=== PATIENT | female | born 1995 | race African-American/Black ===

== ENCOUNTER 2019-04-11 08:12 | Emergency (ER) | payer SELFPAY ==
[~2019-04-11] VITALS: Ht 152.4 cm; Wt 52.6 kg
[2019-04-11 08:28] VITALS: BP 115/55
[2019-04-11] MEDS ORDERED: EPINEPHrine HCL 1 MG/1 ML AMP SC ONE (09:00)
[2019-04-11] MEDS ORDERED: methylPREDNISolone SOD SUCC 125 MG/2 ML VL IM ONE (09:00)
== END 2019-04-11 09:28 | disposition home or self-care (01) ==
LOC: ER 08:12
DX: T78.40XA Allergy, unspecified, initial encounter (principal); Z91.012 Allergy to eggs; J45.909 Unspecified asthma, uncomplicated; X58.XXXA Exposure to other specified factors, initial encounter
CPT/HCPCS: 96372; 99283; J0171; J2930

== ENCOUNTER 2020-08-31 21:00 | Emergency (ER) | payer BC, OTHER ==
[~2020-08-31] VITALS: Ht 157.5 cm; Wt 59.0 kg
[2020-08-31] MEDS ORDERED: ONDANSETRON ODT 4 MG TAB PO ONE (22:00)
[2020-08-31 22:05] VITALS: BP 143/93
[2020-09-01] MEDS ORDERED: KETOROLAC TROMETH 60MG/2ML VIAL IM ONE
== END 2020-09-01 00:25 | disposition home or self-care (01) ==
LOC: EDBD 21:00 → ER 21:02
DX: S46.911A Strain of unspecified muscle, fascia and tendon at shoulder and upper arm level, right arm, initial encounter (principal); S66.911A Strain of unspecified muscle, fascia and tendon at wrist and hand level, right hand, initial encounter; S86.911A Strain of unspecified muscle(s) and tendon(s) at lower leg level, right leg, initial encounter; V49.9XXA Car occupant (driver) (passenger) injured in unspecified traffic accident, initial encounter; Y93.89 Activity, other specified; Y92.89 Other specified places as the place of occurrence of the external cause; Y99.8 Other external cause status
CPT/HCPCS: 70450; 71250; 72125; 73560; 74176; 96372; 99285; J1885; Q0162

== ENCOUNTER 2025-02-15 17:14 | Emergency (ER) | payer BC, OTHER ==
[~2025-02-15] VITALS: Ht 152.4 cm; Wt 99.2 kg
[2025-02-15] MEDS: KETOROLAC TROMETH 60MG/2ML VIAL IM ONE (20:29)
--- NOTE | 2025-02-15 20:32 | DVH ---
CLINICAL INDICATION: Status post fall pain TECHNIQUE: 3 radiographic views of the cervical spine were obtained. Comparison: CERVICAL WITHOUT CONTRAST on DOS: 08/31/20 FINDINGS/IMPRESSION: Bony alignment is normal. There is no spondylolisthesis. Prevertebral soft tissues appear normal.
--- NOTE | 2025-02-15 20:33 | DVH ---
CLINICAL INDICATION: Status post fall pain TECHNIQUE: 3 radiographic views of the right shoulder were obtained. Comparison: None FINDINGS/IMPRESSION: Bony alignment is normal There is no fractures or dislocations. No abnormal soft tissue calcifications.
[2025-02-15] MEDS: HYDROcodone-ACET 5/325MG TAB PO ONE (20:42)
--- NOTE | 2025-02-15 20:43 | DVH ---
INDICATION: Status post fall pain TECHNIQUE: 2 views of the lumbar spine were obtained. COMPARISON: XY CERVICAL SPINE 3V on DOS: 02/15/25 FINDINGS: No evidence of vertebral fracture or compression deformity. Normal lordotic curvature without listh esis. No significant degenerative change. Unremarkable abdominal contents and visualized osseous pel vis. IMPRESSION: 1. No acute finding of the lumbar spine.
[2025-02-15 20:45] VITALS: BP 115/73; PULSE 90; RESP 14; TEMP 98; O2SAT 99
--- NOTE | 2025-02-15 20:53 | ED.PDOC ---
Cy. trauma (HPI) HPI Comments PT CAME IN WITH A CC OF HEAD PAIN AND LOWER BACK PAIN INCREASINGLY WORSE TODAY. PT REPORTS A WORK INJURY ON 07/30/24 WHERE SHE FELL BACKWARDS CAUSATING FACTOR Chief Complaint: Headache Time Seen by MD: 18:16 Primary Care Provider: NONE Reviewed notes: Nurses Notes, Medications, Allergies Allergies: Coded Allergies: NO KNOWN ALLERGIES (Unverified , 04/11/19) Information Source: Patient Mode of Arrival: Ambulatory Past Medical History PAST MEDICAL HISTORY: Asthma Surgical History: Denies all surgeries LABORATORY MANAGER History: No Pertinent LABORATORY MANAGER History Family History Family History: Reviewed,noncontributory to illness Social History Smoker: Non-Smoker Alcohol: Denies ETOH Use Drugs: Denies Drug Use Lives In: Home All Other Systems: Reviewed and Negative (see hpi) Physical Exam General Appearance: No Apparent Distress, Normal HEENT: Normal ENT Inspection, Pharynx Normal, TMs Normal Neck: Full Range of Motion, Tender Lateral Respiratory: Chest Non-Tender, Lungs Clear, No Respiratory Distress, Normal Breath Sounds Cardiovascular: No Edema, No JVD, No Murmur, No Gallop, Normal Peripheral Pulses, Regular Rate/Rhythm Breast Exam: Deferred Gastrointestinal: No Organomegaly, Non Tender, No Pulsatile Mass, Normal Bowel Sounds, Soft Genitalia: Deferred Pelvic: Deferred Rectal: Deferred Extremities: Normal capillary refill, Normal range of motion, No pedal edema Musculoskeletal : Location: Right Extremity Location: Back (In his palpated over bilateral lower back musculature no tenderness palpated over L1 through L5 spine without crepitus or step-offs strength sensory motion intact negative straight leg raise bilateral), Shoulder (Anterior tenderness full range of motion with mild discomfort. ) Apperance: Normal Neurologic: Alert, orthopaedic general II-XII nml as Tested, No Motor Deficits, Normal Affect, Normal Mood, No Sensory Deficits Cerebellar Function: Normal Reflexes: Normal Skin: Dry, Normal Color, Warm Lymphatic: No Adenopathy Was a procedure done? Was a procedure done?: No Differential Diagnosis Multiple Trauma: Closed Head Injury, Fractures, Pneumothorax, Spine Injury Neck Injury: Cervical Muscle Spasm, Cervical Sprain, Cervical Strain, Cervical Fracture X-Ray, Labs, Meds, VS Vital Signs Date Time Temp Pulse Resp B/P (MAP) Pulse Ox O2 Delivery O2 Flow Rate FiO2 02/15/25 20:45 90 14 99 Room Air 02/15/25 20:45 98.0 90 14 115/73 (87) 99 98.0 02/15/25 17:21 99.4 94 18 114/73 98 99.4 X-Ray, Labs, Meds, VS Comment Imaging reviewed no noted fractures, dislocations or osseous lesions. Without any subluxations.Advised to rest increase p.o. fluids with electrolytes [id number] Tylenol or Motrin as needed for pain or fever per labeled dosing instructions. Advised take medications as prescribed side effects discussed. follow up with PCP in 2-3 days advised on ER return precautions. Time of 1ST Reevaluation: 18:45 Reevaluation 1ST: Unchanged Time of 2ND Reevaluation: 20:50 Reevaluation 2ND: Improved Patient Education/Counseling: Diagnosis, Treatment, Prognosis, Need For Follow Up Family Education/Counseling: No Family Present Departure 1 Departure Time of Disposition: 20:49 Impression: Primary Impression: Strain of shoulder, right Qualified Codes: S46.911A - Strain of unspecified muscle, fascia and tendon at shoulder and upper arm level, right arm, initial encounter Additional Impressions: Strain of neck muscle Qualified Codes: S16.1XXA - Strain of muscle, fascia and tendon at neck level, initial encounter Strain of lumbar spine Qualified Codes: S39.012A - Strain of muscle, fascia and tendon of lower back, initial encounter Posttraumatic headache Qualified Codes: G44.329 - Chronic post-traumatic headache, not intractable Disposition: 01 HOME / SELF CARE / HOMELESS Condition: Stable Additional Instructions: Follow up with occupational health or your PCP consider outside referral for brain MRI if symptoms persist Discharged With: Self Critical Care Note Critical Care Time?: No Stability Stability form required: KRISHNA Arellano Feb 15, 2025 20:53
== END 2025-02-15 21:08 | disposition home or self-care (01) ==
LOC: ER 17:14
DX: S16.1XXA Strain of muscle, fascia and tendon at neck level, initial encounter (principal); S39.012A Strain of muscle, fascia and tendon of lower back, initial encounter; S46.911A Strain of unspecified muscle, fascia and tendon at shoulder and upper arm level, right arm, initial encounter; G44.329 Chronic post-traumatic headache, not intractable; J45.909 Unspecified asthma, uncomplicated; W19.XXXA Unspecified fall, initial encounter; Y93.89 Activity, other specified; Y92.89 Other specified places as the place of occurrence of the external cause; Y99.8 Other external cause status
CPT/HCPCS: 72040; 72100; 73030